=== PATIENT | female | born 2000 | race Caucasian/White ===

== ENCOUNTER 2025-03-12 23:31 | Inpatient (IN) | payer OTHER ==
[~2025-03-12] VITALS: Ht 152.4 cm; Wt 100.7 kg
[2025-03-13 01:03] LABS: PLATELET COUNT (AUTO) 392 K/uL (150-450); RED BLOOD CELL COUNT(AUTO) 4.26 MIL/uL (4.00-5.20); RED CELL DISTRIBUTION WIDTH 14.3 % (11.5-14.5); WHITE BLOOD COUNT (AUTO) 5.8 K/uL (4.5-11.0)
[2025-03-13 01:12] LABS: CALCIUM, TOTAL 8.9 mg/dL (8.8-10.5); CREATININE 0.63 mg/dL (0.60-1.30); GLOMERULAR FILTR. RATE CALC > 60 mL/min (>60); GLUCOSE,RANDOM 104 mg/dL (70-110); SODIUM SERUM 140 mmol/L (136-145); UREA NITROGEN, BLOOD 9 mg/dL (7-18)
[2025-03-13 01:23] LABS: ASPARTATE AMINOTRANSFERASE 322 U/L (15-37); HCG,QUANTITATIVE < 1 mIU/mL (0-6); TOTAL PROTEIN, SERUM 7.9 g/dL (6.4-8.2)
[2025-03-13] MEDS: PIPERACILLIN/TAZO 3.375 GM/D5W 50 ML IV ONE (03:09)
[2025-03-13] MEDS: KETOROLAC TROMETHAMINE 30 MG/ML VIAL IVP ONE (03:10)
[2025-03-13 03:20] LABS: APPEARANCE,URINE HAZY (CLEAR); GLUCOSE, URINE (UA) NEGATIVE (NEGATIVE); LEUKOCYTE ESTERASE ,URINE NEGATIVE (NEGATIVE); NITRATE,URINE NEGATIVE (NEGATIVE); OCCULT BLOOD,URINE NEGATIVE (NEGATIVE); SPECIFIC GRAVITIY, URINE 1.022 (1.003-1.030)
[2025-03-13 03:35] LABS: SQUAMOUS EPITHELIAL CELL,UR Few /LPF (None Seen)
[2025-03-13] MEDS ORDERED: MAGNESIUM HYDROXIDE SUSPENSION 30 ML UDCUP PO PRN (05:30)
[2025-03-13] MEDS ORDERED: ONDANSETRON HCL 4 MG/2 ML VIAL IVP PRN (05:30)
[2025-03-13] MEDS ORDERED: MORPHINE SULFATE 2 MG/ML SYRINGE IVP PRN (05:30)
[2025-03-13] MEDS ORDERED: ACETAMINOPHEN 325 MG TABLET PO PRN (05:30)
[2025-03-13] MEDS: PIPERACILLIN/TAZO 3.375 GM/D5W 50 ML IV SCH ×2 (05:51→13:56)
[2025-03-13] MEDS: SODIUM CHLORIDE 0.9% 1,000 ML IV ONE (05:51)
[2025-03-13 06:20] VITALS: BP 109/73; PULSE 69; RESP 18; TEMP 98.2; O2SAT 97
[2025-03-13] MEDS: PANTOPRAZOLE SODIUM 40 MG/VIAL IVP SCH (07:51)
[2025-03-13] MEDS: DOCUSATE SODIUM 100 MG CAPSULE PO SCH (07:51)
[2025-03-13 08:34] VITALS: BP 113/65; PULSE 70; RESP 18; TEMP 98.2; O2SAT 100
[2025-03-13] MEDS ORDERED: ROCURONIUM BROMIDE 10 MG/ML 5 ML VIAL IV ONE (11:02)
[2025-03-13] MEDS ORDERED: LIDOCAINE/PF 2% 5 ML VIAL IM ONE (11:02)
[2025-03-13] MEDS ORDERED: DEXAMETHASONE SOD PHOS 4 MG/ML VIAL IVP ONE (11:02)
[2025-03-13] MEDS ORDERED: SUGAMMADEX SODIUM 200 MG/2 ML VIAL IVP ONE (11:02)
[2025-03-13] MEDS ORDERED: PROPOFOL 1% 20 ML VIAL IVP ONE (11:02)
[2025-03-13] MEDS ORDERED: ONDANSETRON HCL 4 MG/2 ML VIAL IVP ONE (11:02)
[2025-03-13] MEDS ORDERED: FentaNYL CITRATE PF 100 MCG/2 ML VIAL ONE (12:00)
[2025-03-13] MEDS ORDERED: MIDAZOLAM HCL 2 MG/2 ML VIAL ONE (12:00)
[2025-03-13] MEDS ORDERED: SODIUM CHLORIDE 0.9% 1,000 ML ONE (12:26)
[2025-03-13] MEDS ORDERED: FLUMAZENIL 0.1 MG/ML 5 ML VIAL IVP ONE (12:28)
[2025-03-13] MEDS ORDERED: SODIUM TETRADECYL SULFATE 3% 60 MG/2 ML VIAL IVP ONE (12:28)
[2025-03-13] MEDS ORDERED: NALOXONE HCL 0.4 MG/ML VIAL ONE (12:28)
[2025-03-13] MEDS ORDERED: ATROPINE SULFATE 0.1 MG/ML 10 ML SYRINGE IVP ONE (12:29)
[2025-03-13] MEDS ORDERED: EPINEPHrine 1:10,000 [1 MG/10 ML] SYRINGE ONE (12:29)
[2025-03-13] MEDS ORDERED: GADOBUTROL 1 MMOL/ML 10 ML VIAL IVP ONE (14:00)
[2025-03-13] MEDS ORDERED: SODIUM CHLORIDE 0.9% 1,000 ML IV ONE (14:00)
[2025-03-13] MEDS ORDERED: IOTHALAMATE MEGLUMINE 600 MG/ML 50 ML VIAL IVP ONE (15:35)
[2025-03-13] MEDS ORDERED: FentaNYL CITRATE PF 100 MCG/2 ML VIAL IVP PRN (15:45)
[2025-03-13] MEDS ORDERED: MEPERIDINE-PF 25 MG/ML VIAL IVP PRN (15:45)
[2025-03-13] MEDS: SODIUM CHLORIDE 0.9% 1,000 ML IV SCH (18:12)
[2025-03-13] MEDS ORDERED: OXYGEN THERAPY IH SCH (20:00)
[2025-03-13 20:23] VITALS: BP 107/65; PULSE 78; RESP 18; TEMP 98.2; O2SAT 99
[2025-03-14 04:51] VITALS: BP 102/60; PULSE 64; RESP 18; TEMP 98.2; O2SAT 96
[2025-03-14 06:49] LABS: PLATELET COUNT (AUTO) 355 K/uL (150-450); RED BLOOD CELL COUNT(AUTO) 3.65 MIL/uL (4.00-5.20); RED CELL DISTRIBUTION WIDTH 14.4 % (11.5-14.5); WHITE BLOOD COUNT (AUTO) 7.2 K/uL (4.5-11.0)
[2025-03-14 07:02] LABS: ASPARTATE AMINOTRANSFERASE 64 U/L (15-37); CALCIUM, TOTAL 8.1 mg/dL (8.8-10.5); CREATININE 0.64 mg/dL (0.60-1.30); GLOMERULAR FILTR. RATE CALC > 60 mL/min (>60); GLUCOSE,RANDOM 94 mg/dL (70-110); SODIUM SERUM 138 mmol/L (136-145); TOTAL PROTEIN, SERUM 6.7 g/dL (6.4-8.2); UREA NITROGEN, BLOOD 7 mg/dL (7-18)
[2025-03-14 08:00] VITALS: BP 99/60; PULSE 73; RESP 18; TEMP 97.7; O2SAT 98
[2025-03-14] MEDS ORDERED: RINGERS SOLUTION,LACTATED 1,000 ML IV ONE (08:23)
[2025-03-14] MEDS: CHLORHEXIDINE GLUCONATE 2% TOWELETTE [2'S/6'S] TP ONE (09:31)
[2025-03-14] MEDS: RINGERS SOLUTION,LACTATED 1,000 ML IV ONE (09:31)
[2025-03-14] MEDS: ETHYL ALCOHOL 62% ANTISEPTIC NASAL SANITIZER 0.6 ML AMPUL NASAL ONE (09:31)
[2025-03-14] MEDS: BUPIVACAINE HCL/PF 0.5% 30 ML VIAL ONE (09:52)
[2025-03-14] MEDS ORDERED: ROCURONIUM BROMIDE 10 MG/ML 5 ML VIAL ONE (12:00)
[2025-03-14] MEDS ORDERED: 0.9% SODIUM CHLORIDE 10 ML VIAL ONE (12:00)
[2025-03-14] MEDS ORDERED: MIDAZOLAM HCL 2 MG/2 ML VIAL ONE (12:00)
[2025-03-14] MEDS ORDERED: MEPERIDINE-PF 25 MG/ML VIAL IVP PRN (12:00)
[2025-03-14] MEDS ORDERED: ONDANSETRON HCL 4 MG/2 ML VIAL ONE (12:00)
[2025-03-14] MEDS ORDERED: ACETAMINOPHEN/ISO-OSM 1000 MG/100 ML BOTTLE IV ONE (12:00)
[2025-03-14] MEDS ORDERED: HYDROmorphone 2 MG/ML 20 ML VIAL IV ONE (12:00)
[2025-03-14] MEDS ORDERED: KETOROLAC TROMETHAMINE 60 MG/2 ML VIAL IM ONE (12:00)
[2025-03-14] MEDS ORDERED: LIDOCAINE/PF 2% 5 ML VIAL ONE (12:00)
[2025-03-14] MEDS ORDERED: PROPOFOL 1% 20 ML VIAL IVP ONE (12:00)
[2025-03-14] MEDS ORDERED: SUGAMMADEX SODIUM 200 MG/2 ML VIAL IVP ONE (12:00)
[2025-03-14] MEDS ORDERED: FentaNYL CITRATE PF 100 MCG/2 ML VIAL ONE ×2 (12:00→12:21)
[2025-03-14] MEDS ORDERED: MORPHINE SULFATE 4 MG/ML SYRINGE IVP PRN (12:00)
[2025-03-14] MEDS ORDERED: DEXAMETHASONE SOD PHOS 4 MG/ML VIAL ONE (12:00)
[2025-03-14] MEDS: FentaNYL CITRATE PF 100 MCG/2 ML VIAL IVP PRN (12:23)
[2025-03-14 14:00] VITALS: PULSE 86; RESP 16; O2SAT 98
[2025-03-14] MEDS: IBUPROFEN 200 MG TABLET PO SCH (15:07)
[2025-03-14] MEDS: FAMOTIDINE 20 MG TABLET PO SCH (15:07)
[2025-03-14 17:39] VITALS: BP 111/58; PULSE 86; RESP 18; TEMP 98.1; O2SAT 97
[2025-03-14] MEDS: HYDROCODONE/ACETAMINOPHEN 5-325 MG TABLET PO PRN (19:45)
[2025-03-14 19:50] VITALS: BP 114/63; PULSE 84; RESP 18; TEMP 99.3; O2SAT 97
[2025-03-14] MEDS ORDERED: OXYGEN THERAPY IH SCH (20:00)
[2025-03-15 04:15] VITALS: BP 115/69; PULSE 83; RESP 18; TEMP 98.6; O2SAT 94
[2025-03-15 08:30] VITALS: BP 109/80; PULSE 91; RESP 18; TEMP 98.6; O2SAT 100
[2025-03-15 10:30] LABS: PLATELET COUNT (AUTO) 310 K/uL (150-450); RED BLOOD CELL COUNT(AUTO) 3.49 MIL/uL (4.00-5.20); RED CELL DISTRIBUTION WIDTH 13.9 % (11.5-14.5); WHITE BLOOD COUNT (AUTO) 7.5 K/uL (4.5-11.0)
[2025-03-15 10:46] LABS: ASPARTATE AMINOTRANSFERASE 35 U/L (15-37); CALCIUM, TOTAL 7.5 mg/dL (8.8-10.5); CREATININE 0.47 mg/dL (0.60-1.30); GLOMERULAR FILTR. RATE CALC > 60 mL/min (>60); GLUCOSE,RANDOM 93 mg/dL (70-110); SODIUM SERUM 140 mmol/L (136-145); TOTAL PROTEIN, SERUM 6.2 g/dL (6.4-8.2); UREA NITROGEN, BLOOD 4 mg/dL (7-18)
[2025-03-15] MEDS ORDERED: POTASSIUM CHL 10 MEQ/WATER 50 ML IV PRN (11:30)
[2025-03-15] MEDS: POTASSIUM CHLORIDE 20 MEQ ER TABLET PO PRN (11:41)
[2025-03-15 20:02] VITALS: BP 119/79; PULSE 93; RESP 18; TEMP 97.9; O2SAT 96
[2025-03-16 04:40] VITALS: BP 113/84; PULSE 88; RESP 18; TEMP 98.6; O2SAT 97
[2025-03-16 06:51] LABS: PLATELET COUNT (AUTO) 301 K/uL (150-450); RED BLOOD CELL COUNT(AUTO) 3.51 MIL/uL (4.00-5.20); RED CELL DISTRIBUTION WIDTH 14.3 % (11.5-14.5); WHITE BLOOD COUNT (AUTO) 7.4 K/uL (4.5-11.0)
[2025-03-16 07:07] LABS: ASPARTATE AMINOTRANSFERASE 35 U/L (15-37); CALCIUM, TOTAL 8.0 mg/dL (8.8-10.5); CREATININE 0.59 mg/dL (0.60-1.30); GLOMERULAR FILTR. RATE CALC > 60 mL/min (>60); GLUCOSE,RANDOM 89 mg/dL (70-110); SODIUM SERUM 141 mmol/L (136-145); TOTAL PROTEIN, SERUM 6.5 g/dL (6.4-8.2); UREA NITROGEN, BLOOD 5 mg/dL (7-18)
[2025-03-16 08:23] VITALS: BP 118/95; PULSE 84; RESP 20; TEMP 98.1; O2SAT 100
[2025-03-16] MEDS ORDERED: DOCU-385 PO (10:04)
[2025-03-16] MEDS ORDERED: FAMO20 PO (10:04)
[2025-03-16] MEDS ORDERED: IBUP-45 PO (10:05)
[2025-03-16] MEDS ORDERED: ACET-2247 PO (10:06)
== END 2025-03-16 16:42 | DRG 415 ==
LOC: EMS 23:34 → EDH 03-13 05:22 → 6S 03-13 06:20
PROVIDERS: ADMIT Internal Medicine; ATTEND Internal Medicine
PROC: 0FC98ZZ Extirpation of Matter from Common Bile Duct, Via Natural or Artificial Opening Endoscopic (ICD-10-PCS; 2025-03-13)
PROC: 0FJ44ZZ Inspection of Gallbladder, Percutaneous Endoscopic Approach (ICD-10-PCS; 2025-03-14)
PROC: 0FT40ZZ Resection of Gallbladder, Open Approach (ICD-10-PCS; principal; 2025-03-14 10:00)
DX: K80.66 Calculus of gallbladder and bile duct with acute and chronic cholecystitis without obstruction (principal); Z68.41 Body mass index [BMI] 40.0-44.9, adult; E66.01 Morbid (severe) obesity due to excess calories; E87.6 Hypokalemia; R74.01 Elevation of levels of liver transaminase levels; J45.909 Unspecified asthma, uncomplicated; K82.8 Other specified diseases of gallbladder; Z53.31 Laparoscopic surgical procedure converted to open procedure; Z79.899 Other long term (current) drug therapy
CPT/HCPCS: 74181; 76705; 80048; 80053; 80076; 81001; 82150; 83690; 84132; 84702; 85025; 88304; 94760; 96365; 96368; 96375; 99285; A9585; G0238; J0131; J0169; J0461; J0690; J1100; J1171; J1200; J1885; J2250; J2312; J2405; J2470; J2543; J2704; J3010; J3490; J7030; J7120; Q9961